=== PATIENT | male | born 1980 | race Caucasian/White ===

== ENCOUNTER 2018-06-24 13:26 | Observation (INO) ==
--- NOTE | 2018-06-24 14:15 | XR ---
EXAM DATE: 06/24/2018 2:10 PM EDT AGE/SEX: 37 years / Male INDICATIONS: Chest pain CLINICAL DATA: This is the patient's initial encounter. Patient reports that signs and symptoms have been present for 1 day and indicates a pain score of 6/10. MEDICAL/SURGICAL HISTORY: None. None. COMPARISON: No prior exams available for comparison. FINDINGS: A single AP view of the chest demonstrates the lungs to be symmetrically aerated without evidence of mass, infiltrate or effusion. The cardiomediastinal contours are unremarkable. Osseous structures a re intact. CONCLUSION: Negative examination. Electronically signed by: Dilshad Quintana MD 06/24/2018 2:14 PM EDT
[2018-06-24 14:26] LABS: Baso # (Auto) 0.1 th/mm3 (0.0-0.2); Baso % (Auto) 0.7 % (0.0-2.0); Eos # (Auto) 0.4 th/mm3 (0.0-0.4); Eos % (Auto) 3.6 % (0.0-4.0); Hematocrit 46.7 % (39.0-51.0); Hemoglobin 16.1 gm/dL (13.0-17.0); Lymph # (Auto) 2.2 th/mm3 (1.0-4.8); Lymph % (Auto) 18.8 % (9.0-44.0); Mean Corpuscular HGB Conc 34.5 % (32.0-36.0); Mean Corpuscular Hemoglobin 30.9 pg (27.0-34.0); Mean Corpuscular Volume 89.5 fL (80.0-100.0); Mean Platelet Volume 9.7 fL (7.0-11.0); Mono # (Auto) 1.1 th/mm3 (0.0-0.9); Mono % (Auto) 9.6 % (0.0-8.0); Neut % (Auto) 67.3 % (16.0-70.0); Platelet Count 260 th/mm3 (150-450); Red Blood Count 5.22 mil/mm3 (4.50-5.90); Red Cell Distribution Width 13.5 % (11.6-17.2); White Blood Count 11.8 th/mm3 (4.0-11.0)
[2018-06-24 14:33] LABS: Chloride 106 meq/L (98-107); Potassium 3.8 meq/L (3.5-5.1); Sodium 141 meq/L (136-145)
[2018-06-24 14:36] LABS: Calcium 8.6 mg/dL (8.5-10.1)
[2018-06-24 14:37] LABS: Activated Partial Thrombo Time 29.2 sec (24.3-30.1); Albumin 4.2 g/dL (3.4-5.0); Anion Gap 6 meq/L (5-15); Blood Urea Nitrogen 10 mg/dL (7-18); Glucose,Random 105 mg/dL (74-106); Prothrombin Time 10.1 sec (9.8-11.6)
[2018-06-24 14:39] LABS: Glomerular Filtration Rate Greater Than 89 mL/min (>89)
[2018-06-24 14:40] LABS: Aspartate Aminotransferase 28 U/L (15-37)
[2018-06-24 14:41] LABS: Total Protein 8.2 g/dL (6.4-8.2)
[2018-06-24 14:42] LABS: Alkaline Phosphatase 61 U/L (45-117)
[2018-06-24 14:45] LABS: Alanine Aminotransferase 39 U/L (12-78)
--- NOTE | 2018-06-24 15:17 | ED ---
HPI General Chief complaint: Chest Pain Stated complaint: Chest pain Time Seen by Provider: 06/24/18 13:49 History of Present Illness HPI narrative: Patient 37-year-old male history of prediabetes high blood pressure high cholesterol cigarette smoking obesity and cocaine abuse presents emergency department for evaluation of chest pain achy in the middle of his chest radiating to his right jaw which started an hour or 2 prior to arrival while having intercourse. Patient denies any shortness of breath abdominal pain nausea or vomiting. States is never happened him before. No history of heart disease in him, no family history of early heart disease. Patient is beginning to feel better now. Onset (ago): hour(s) Location: chest Radiation: neck Severity: moderate Quality: aching Related Data Home Medications Medication Instructions Recorded Confirmed No Known Home Medications 05/27/18 06/24/18 Allergies Allergy/AdvReac Type Severity Reaction Status Date / Time No Known Allergies Allergy Unverified 05/27/18 14:16 Review of Systems Except as stated in HPI: all other systems reviewed are negative [facility] Social History Social History Substance History: Active Abuse Second Hand Smoke Exposure: No Smoking Status: Current every day smoker Tobacco Type: Cigarettes How Often Do You Have a Drink Containing Alcohol: Never Recent Travel in [facility] within the Last 8 Weeks: No Recent Out of Country Travel within the Last 8 Weeks: No Substance Abuse Detail Crack/Cocaine: Substance Use Status: Active Reason for Use: Calm Down Immunization History Tetanus Immunization: <5 Years Hx Influenza Vaccine This Season: No Exam Narrative Exam Narrative: GENERAL: Well-developed morbidly obese male in no obvious distress SKIN: Focused skin assessment warm/dry. HEAD: Atraumatic. Normocephalic. EYES: Pupils equal and round. No scleral icterus. No injection or drainage. ENT: No nasal bleeding or discharge. Mucous membranes pink and moist. NECK: Trachea midline. No JVD. CARDIOVASCULAR: Regular rate and rhythm. No murmur appreciated. 2+ bilateral equal pulses in all 4 extremities. No murmurs gallops or rubs RESPIRATORY: No accessory muscle use. Clear to auscultation. Breath sounds equal bilaterally. GASTROINTESTINAL: Abdomen soft, non-tender, nondistended. Hepatic and splenic margins not palpable. MUSCULOSKELETAL: No obvious deformities. No clubbing. No cyanosis. No edema. NEUROLOGICAL: Awake and alert. No obvious cranial nerve deficits. Motor grossly within normal limits. Normal speech. PSYCHIATRIC: Appropriate mood and affect; insight and judgment normal. Course Initial Documented Vital Signs Temperature 98.6 F 06/24/18 13:30 Pulse Rate 88 06/24/18 13:30 Respiratory Rate 20 06/24/18 13:30 Blood Pressure 113/67 06/24/18 13:30 Pulse Oximetry 95 06/24/18 13:30 Last Documented Vital Signs Temperature 96.7 F L 06/25/18 08:00 Pulse Rate 82 06/25/18 08:00 Respiratory Rate 18 06/25/18 08:00 Blood Pressure 153/94 H 06/25/18 08:00 Pulse Oximetry 97 06/25/18 08:00 Medical Decision Making MDM Narrative Medical decision making narrative: Patient room to the emergency department, urged to stop using cocaine and smoking. He does have risk factors for ACS and a fairly good description. Initial troponin EKG negative, chest x-ray negative. Recommended admission for observation and chest pain center and he is agreeable peer Differential Diagnosis Differential Diagnosis: Chest pain, ACS, NV, cocaine use, tobacco use. Lab Data Result diagrams: 06/24/18 14:00 06/24/18 14:00 Lab Results 06/24/18 06/24/18 06/24/18 Range/Units 14:00 14:00 14:00 CBC w Diff Auto diff final WBC 11.8 H (4.0-11.0) th/mm3 RBC 5.22 (4.50-5.90) mil/mm3 Hgb 16.1 (13.0-17.0) gm/dL Hct 46.7 (39.0-51.0) % MCV 89.5 (80.0-100.0) fL MCH 30.9 (27.0-34.0) pg MCHC 34.5 (32.0-36.0) % RDW 13.5 (11.6-17.2) % Plt Count 260 (150-450) th/mm3 MPV 9.7 (7.0-11.0) fL Neut % (Auto) 67.3 (16.0-70.0) % Lymph % (Auto) 18.8 (9.0-44.0) % Eddy % (Auto) 9.6 H (0.0-8.0) % Eos % (Auto) 3.6 (0.0-4.0) % Baso % (Auto) 0.7 (0.0-2.0) % Neut # (Auto) 8.0 H (1.8-7.7) th/mm3 Lymph # (Auto) 2.2 (1.0-4.8) th/mm3 Eddy # (Auto) 1.1 H (0.0-0.9) th/mm3 Eos # (Auto) 0.4 (0.0-0.4) th/mm3 Baso # (Auto) 0.1 (0.0-0.2) th/mm3 WBC Differential . Differential Comment . PT 10.1 (9.8-11.6) sec INR 1.0 Ratio APTT 29.2 (24.3-30.1) sec Sodium 141 (136-145) meq/L Potassium 3.8 (3.5-5.1) meq/L Chloride 106 (98-107) meq/L Carbon Dioxide 29.0 (21.0-32.0) meq/L Anion Gap 6 (5-15) meq/L BUN 10 (7-18) mg/dL Creatinine 0.94 (0.60-1.30) mg/dL Estimated GFR Greater than 89 (>89) mL/min Random Glucose 105 (74-106) mg/dL Calcium 8.6 (8.5-10.1) mg/dL Total Bilirubin 0.5 (0.2-1.0) mg/dL AST 28 (15-37) U/L ALT 39 (12-78) U/L Alkaline Phosphatase 61 (45-117) U/L Total Creatine Kinase (39-308) U/L CK-MB (CK-2) (0.5-3.6) ng/mL CK-MB (CK-2) % (0.0-4.0) % Troponin I Less than 0.02 L (0.02-0.05) ng/mL Total Protein 8.2 (6.4-8.2) g/dL Albumin 4.2 (3.4-5.0) g/dL Triglycerides (42-150) mg/dL Cholesterol (120-200) mg/dL LDL Cholesterol, Calc (0-99) mg/dL HDL Cholesterol (40.0-60.0) mg/dL Cholesterol/HDL Ratio Ratio 0806/24/18 06/24/18 Range/Units 16:30 16:30 19:20 CBC w Diff WBC (4.0-11.0) th/mm3 RBC (4.50-5.90) mil/mm3 Hgb (13.0-17.0) gm/dL Hct (39.0-51.0) % MCV (80.0-100.0) fL MCH (27.0-34.0) pg MCHC (32.0-36.0) % RDW (11.6-17.2) % Plt Count (150-450) th/mm3 MPV (7.0-11.0) fL Neut % (Auto) (16.0-70.0) % Lymph % (Auto) (9.0-44.0) % Eddy % (Auto) (0.0-8.0) % Eos % (Auto) (0.0-4.0) % Baso % (Auto) (0.0-2.0) % Neut # (Auto) (1.8-7.7) th/mm3 Lymph # (Auto) (1.0-4.8) th/mm3 Eddy # (Auto) (0.0-0.9) th/mm3 Eos # (Auto) (0.0-0.4) th/mm3 Baso # (Auto) (0.0-0.2) th/mm3 WBC Differential Differential Comment PT (9.8-11.6) sec INR Ratio APTT (24.3-30.1) sec Sodium (136-145) meq/L Potassium (3.5-5.1) meq/L Chloride (98-107) meq/L Carbon Dioxide (21.0-32.0) meq/L Anion Gap (5-15) meq/L BUN (7-18) mg/dL Creatinine (0.60-1.30) mg/dL Estimated GFR (>89) mL/min Random Glucose (74-106) mg/dL Calcium (8.5-10.1) mg/dL Total Bilirubin (0.2-1.0) mg/dL AST (15-37) U/L ALT (12-78) U/L Alkaline Phosphatase (45-117) U/L Total Creatine Kinase 245 417 H (39-308) U/L CK-MB (CK-2) 1.4 (0.5-3.6) ng/mL CK-MB (CK-2) % 0.3 (0.0-4.0) % Troponin I Less than 0.02 L Less than 0.02 L (0.02-0.05) ng/mL Total Protein (6.4-8.2) g/dL Albumin (3.4-5.0) g/dL Triglycerides 185 H (42-150) mg/dL Cholesterol 155 (120-200) mg/dL LDL Cholesterol, Calc 88 (0-99) mg/dL HDL Cholesterol 30.4 L (40.0-60.0) mg/dL Cholesterol/HDL Ratio 5.09 Ratio Imaging Data Radiologist's impression: Chest X-Ray 06/24/18 13:53 CONCLUSION: Negative examination. Discharge Plan Discharge Disposition Patient Disposition: 01 Discharge Home Discharge Condition Condition: Stable Discharge Order Discharge Orders: Discharge Order (Routine); Ordered 06/25/18 Ordered By: Seth Pires Discharge Details Anticipated Discharge Date: 06/25/18 Physicians Team ED Provider: Manohar Ng Primary Care Provider: Cisco East Attending Provider: Jana Ramirez Status ED Status: Left Department Discharge Information Discharge Date/Time: 06/24/18 17:32
--- NOTE | 2018-06-24 16:31 | P.HPIM ---
History of Present Illness Service: [facility] Primary Care Physician: Cisco East MD Chief Complaint: Chest pain History of Present Illness: 37-year-old male with a self-reported history of hyperlipidemia, tobacco abuse, active cocaine use who presented to the emergency room with complaint of chest tightness located in the middle of his chest. He reports radiation to his jaw. Patient states the pain started about 2 hours prior to arriving to the emergency room while he was having sex. He admits to using cocaine. Currently he reports the pain is almost gone but he is still having some chest discomfort. He reports associated shortness of breath briefly but that resolved. He denies nausea or vomiting. No diaphoresis. - Diagnosis (1) Chest pain (2) Cocaine abuse (3) Tobacco abuse Review of Systems All other systems reviewed negative except as stated in HPI Cardiovascular: Reports chest pain PMFSH - History History Provided By: Patient - Medical History Medical History: Medical History (Last Reviewed 06/24/18 @ 16:40 by Jana Ramirez MD) GERD (gastroesophageal reflux disease) High cholesterol Hypertension Lymph node disorder - Surgical History Surgical History: Surgical History (Last Reviewed 06/24/18 @ 16:40 by Jana Ramirez MD) H/O adenoidectomy - Tobacco History Second Hand Smoke Exposure: Yes Tobacco Use In Past 30 Days: Yes Smoking Status: Current every day smoker Tobacco Type: Cigarettes - Alcohol History How Often Do You Have a Drink Containing Alcohol: 2 to 4 times a month - Substance Use History Substance History: Active Abuse - Substance Use Type Crack/Cocaine Status: Active Reason for Use: Calm Down - Travel History Recent Travel in the [facility] Within the Last 8 Weeks: No Recent Travel Out of the Country Within the Last 8 Weeks: No - Immunization History Tetanus Immunization: <5 Years Hx Influenza Vaccine This Season: No Medications and Allergies Active Medications: Active Medications Famotidine (Pepcid) 20 mg PO BID ALFONZO Nitroglycerin (Nitrostat Sl) 0.4 mg SL Q5M PRN PRN Reason: CHEST PAIN Sodium Chloride (Ns Flush) 2 ml IV.FLUSH BID ALFONZO Sodium Chloride (Ns Flush) 2 ml IV.FLUSH PRN PRN PRN Reason: FLUSH AFTER USING IV ACCESS Allergies Allergy/AdvReac Type Severity Reaction Status Date / Time No Known Allergies Allergy Unverified 05/27/18 14:16 Home Medications Medication Instructions Recorded Confirmed Type No Known Home Medications 05/27/18 06/24/18 History Exam Vital signs: Vital Signs 06/24/18 13:30 06/24/18 14:15 06/24/18 14:32 Temperature 98.6 F Pulse Rate 88 78 Respiratory Rate 20 Blood Pressure 113/67 117/69 Pulse Oximetry 95 97 95 Intake & Output 06/23/18 06/24/18 06/24/18 18:59 06:59 18:59 Weight 103.4 kg Narrative: GENERAL: Obese male in no acute distress. CARDIOVASCULAR: Normal rate and regular rhythm without murmurs, gallops, or rubs. RESPIRATORY: Good respiratory efforts. Breath sounds equal and clear to auscultation bilaterally. GASTROINTESTINAL: Abdomen soft, non-tender, non-distended. Normal active bowel sounds MUSCULOSKELETAL: Extremities without cyanosis, or edema. NEURO: Alert & Oriented x4 to person, place, time, situation. Moves all ext x4 PSYCH: Appropriate mood and affect. Results - Labs CBC & Chem 7: 06/24/18 14:00 06/24/18 14:00 Labs: Short CBC 06/24/18 Range/Units 14:00 WBC 11.8 H (4.0-11.0) th/mm3 Hgb 16.1 (13.0-17.0) gm/dL Hct 46.7 (39.0-51.0) % Plt Count 260 (150-450) th/mm3 BMP 06/24/18 14:00 Sodium 141 Potassium 3.8 Chloride 106 Carbon Dioxide 29.0 BUN 10 Creatinine 0.94 Calcium 8.6 Cardiac Enzymes 06/24/18 Range/Units 14:00 Troponin I Less than 0.02 L (0.02-0.05) ng/mL Liver Function 06/24/18 Range/Units 14:00 Total Bilirubin 0.5 (0.2-1.0) mg/dL AST 28 (15-37) U/L ALT 39 (12-78) U/L Alkaline Phosphatase 61 (45-117) U/L Albumin 4.2 (3.4-5.0) g/dL - Imaging Impressions Chest X-Ray 06/24/18 13:53 CONCLUSION: Negative examination. Caprini VTE Risk Assessment Caprini VTE Risk Assessment: No/Low Risk (score <= 1) Caprini Risk Assessment Model: Point Value = 1 Point Value = 2 Point Value = 3 Point Value = 5 Age 41-60 Minor surgery BMI > 25 kg/m2 Swollen legs Varicose veins or History of unexplained or recurrent spontaneous Oral contraceptives or hormone replacement Sepsis (< 1 month) Serious lung disease, including pneumonia (< 1 month) Abnormal pulmonary function Acute myocardial infarction Congestive heart failure (< 1 month) History of inflammatory bowel disease Medical patient at bed rest Age 61-74 Arthroscopic surgery Major open surgery (> 45 min) Laparoscopic surgery (> 45 min) Malignancy Confined to bed (> 72 hours) Immobilizing plaster cast Central venous access Age >= 75 History of VTE Family history of VTE Factor V Leiden Prothrombin [id number] Lupus anticoagulant Anticardiolipin antibodies Elevated serum homocysteine Heparin-induced thrombocytopenia Other congenital or acquired thrombophilia Stroke (< 1 month) Elective arthroplasty Hip, pelvis, or leg fracture Acute spinal cord injury (< 1 month) Prophylaxis Regimen: Total Risk Factor Score Risk Level Prophylaxis Regimen 0-1 Low Early ambulation 2 Moderate Order ONE of the following: *Sequential Compression Device (SCD) *Heparin 5000 units SQ BID 3-4 Higher Order ONE of the following medications: *Heparin 5000 units SQ TID *Enoxaparin/Lovenox 40 mg SQ daily (WT < 150 kg, CrCl > 30 mL/min) *Enoxaparin/Lovenox 30 mg SQ daily (WT < 150 kg, CrCl > 10-29 mL/min) *Enoxaparin/Lovenox 30 mg SQ BID (WT < 150 kg, CrCl > 30 mL/min) AND/OR *Sequential Compression Device (SCD) 5 or more Highest Order ONE of the following medications: *Heparin 5000 units SQ TID (Preferred with Epidurals) *Enoxaparin/Lovenox 40 mg SQ daily (WT < 150 kg, CrCl > 30 mL/min) *Enoxaparin/Lovenox 30 mg SQ daily (WT < 150 kg, CrCl > 10-29 mL/min) *Enoxaparin/Lovenox 30 mg SQ BID (WT < 150 kg, CrCl > 30 mL/min) AND *Sequential Compression Device (SCD) Assessment and Plan - Assessment (1) Chest pain Code(s): R07.9 - Chest pain, unspecified Status: Acute Plan: Risk factors include reported history of hyperlipidemia, tobacco abuse, obesity. Suspect chest pain is likely secondary to vasospasm from cocaine abuse. Continue to trend cardiac enzymes. Consider treadmill stress test tomorrow morning. Nitro as needed for chest pain. (2) Cocaine abuse Code(s): F14.10 - Cocaine abuse, uncomplicated Status: Acute Plan: Patient was extensively counseled on cessation. (3) Tobacco abuse Code(s): Z72.0 - Tobacco use Status: Acute Plan: Patient extensively counseled on cessation. - Plan Discussed Condition With: Dr. Ng
[2018-06-24 17:01] LABS: Creatine Kinase 245 U/L (39-308)
[2018-06-24] MEDS: Famotidine 20 MG Tablet PO SCH (17:01)
[2018-06-24 19:51] LABS: Creatine Kinase 417 U/L (39-308)
[2018-06-24 20:04] LABS: CKMB Percent 0.3 % (0.0-4.0); Creatine Kinase MB 1.4 ng/mL (0.5-3.6)
[2018-06-24 20:19] LABS: Chol/HDL Ratio 5.09 Ratio; HDL Cholesterol 30.4 mg/dL (40.0-60.0)
[2018-06-25] MEDS: Famotidine 20 MG Tablet PO SCH ×2 (04:32→08:30)
--- NOTE | 2018-06-25 07:46 | P.PN ---
Subjective Interval history: 37-year-old male who is seen and examined today for follow-up on chest pain. Patient denies any recurrent chest pain or any other complaint. Discussed with the patient his results are unremarkable at this time. Anticipate moving forward with stress test. Patient is in agreement. Vital signs are stable. Patient afebrile. Physical Exam Vital signs: Vital Signs 06/24/18 13:30 06/24/18 14:15 06/24/18 14:32 Temperature 98.6 F Pulse Rate 88 78 Respiratory Rate 20 Blood Pressure 113/67 117/69 Pulse Oximetry 95 97 95 06/24/18 16:30 06/24/18 18:28 06/24/18 19:40 Temperature Pulse Rate 68 92 H Respiratory Rate 18 Blood Pressure 120/77 Pulse Oximetry 95 06/24/18 20:00 06/25/18 00:00 Temperature 96.9 F L 98.5 F Pulse Rate 86 86 Respiratory Rate 16 16 Blood Pressure 124/75 130/79 Pulse Oximetry 99 96 Intake & Output 06/24/18 06/25/18 06/25/18 18:59 06:59 18:59 Intake Total 240 / 240 Balance 240 / 240 Weight 103.4 kg 104.9 kg Intake: Oral 240 / 240 Other: # Voids 0 2 # Bowel Movements 0 Narrative: GENERAL: Well-developed, mildly obese, in no acute distress. alert and orientated HEENT: Head is normocephalic without any lesions or masses noted. Facial features are symmetric. Eyes: Extraocular muscles are intact. Conjunctivae were clear. NECK: Supple without any masses. Trachea midline no deviation. No JVD, CARDIAC: Regular rhythm, regular rate. S1/S2 are heard. No murmurs gallops or rubs. LUNGS: Clear to auscultation bilaterally. No wheeze, rhonchi or rales. No use of accessory muscles on inspiration or expiration. ABDOMEN: Soft, nontender. Nondistended. Bowel sounds heard in all 4 quadrants. No organomegaly or masses. Negative rebound, negative guarding EXTREMITIES: No edema, pulses are equal bilaterally. No cyanosis or clubbing NEUROLOGY: Mood and affect appear appropriate. Cranial nerves II through XII grossly intact. Moving all extremities, speech is clear Results - Labs CBC & Chem 7: 06/24/18 14:00 06/24/18 14:00 Laboratory Results - last 24 hr 06/24/18 06/24/18 06/24/18 14:00 14:00 14:00 CBC w Diff Auto diff final WBC 11.8 H RBC 5.22 Hgb 16.1 Hct 46.7 MCV 89.5 MCH 30.9 MCHC 34.5 RDW 13.5 Plt Count 260 MPV 9.7 Neut % (Auto) 67.3 Lymph % (Auto) 18.8 Beaver % (Auto) 9.6 H Eos % (Auto) 3.6 Baso % (Auto) 0.7 Neut # (Auto) 8.0 H Lymph # (Auto) 2.2 Beaver # (Auto) 1.1 H Eos # (Auto) 0.4 Baso # (Auto) 0.1 WBC Differential . Differential Comment . PT 10.1 INR 1.0 APTT 29.2 Sodium 141 Potassium 3.8 Chloride 106 Carbon Dioxide 29.0 Anion Gap 6 BUN 10 Creatinine 0.94 Estimated GFR Greater than 89 Random Glucose 105 Calcium 8.6 Total Bilirubin 0.5 AST 28 ALT 39 Alkaline Phosphatase 61 Total Creatine Kinase CK-MB (CK-2) CK-MB (CK-2) % Troponin I Less than 0.02 L Total Protein 8.2 Albumin 4.2 Triglycerides Cholesterol LDL Cholesterol, Calc HDL Cholesterol Cholesterol/HDL Ratio 06/24/18 06/24/18 06/24/18 16:30 16:30 19:20 CBC w Diff WBC RBC Hgb Hct MCV MCH MCHC RDW Plt Count MPV Neut % (Auto) Lymph % (Auto) Beaver % (Auto) Eos % (Auto) Baso % (Auto) Neut # (Auto) Lymph # (Auto) Beaver # (Auto) Eos # (Auto) Baso # (Auto) WBC Differential Differential Comment PT INR APTT Sodium Potassium Chloride Carbon Dioxide Anion Gap BUN Creatinine Estimated GFR Random Glucose Calcium Total Bilirubin AST ALT Alkaline Phosphatase Total Creatine Kinase 245 417 H CK-MB (CK-2) 1.4 CK-MB (CK-2) % 0.3 Troponin I Less than 0.02 L Less than 0.02 L Total Protein Albumin Triglycerides 185 H Cholesterol 155 LDL Cholesterol, Calc 88 HDL Cholesterol 30.4 L Cholesterol/HDL Ratio 5.09 - Imaging Impressions Chest X-Ray 06/24/18 13:53 CONCLUSION: Negative examination. Assessment and Plan - Assessment (1) Chest pain Code(s): R07.9 - Chest pain, unspecified Status: Acute Plan: -Patient with increased risk factors to include reported history of hyperlipidemia, tobacco abuse, obesity. -Suspect chest pain is likely secondary to vasospasm from cocaine abuse. -Patient has been ruled out for acute coronary event with serial cardiac enzymes that have remained negative -Serial EKGs were reviewed by myself and shows sinus rhythm without any changes -Exercise stress test was performed and indicated no signs of ischemia, normal exam -Continue aspirin and nitroglycerin as needed (2) Cocaine abuse Code(s): F14.10 - Cocaine abuse, uncomplicated Status: Acute Plan: -Patient was counseled extensively on cessation of cocaine use (3) Tobacco abuse Code(s): Z72.0 - Tobacco use Status: Acute Plan: -Patient extensively counseled on cessation. - Plan Discharge Planning: Discharge home in stable condition Activity: Ad kathie. Diet: Healthy heart diet Medication per medication reconciliation Follow-up with primary medical doctor in 1 week
--- NOTE | 2018-06-25 11:12 | TR ---
Date Performed: 06/25/2018 Time Performed: 09:48:44 DOCTOR: Kevin Rascon DRUG LIST: CLINICAL HISTORY: CHEST PAIN REASON FOR TEST: REASON FOR ENDING: Completed Protocol OBSERVATION: Arrhythmia: None Chest Pain: None CONCLUSION: Patient tolerated JAMES protocol with Total Exercise Time=10:00 Maximum BD=795 % Max HR Achieved=92.0% Maximum NI=907/88, Testing stopped secondary to goals acheived. Patient reached ta rget HR, During peak exercise, patient was asymptomatic, Quick upsloping ST segments, HR and BP appro priate response to exercise, Recovery period HR and BP returned to baseline COMMENTS: Conclusion: Normal treadmill exercise. No evidence of ischemia.
--- NOTE | 2018-06-25 14:02 | ECG ---
Date Performed: 06/24/2018 Time Performed: 19:20:09 PTAGE: 37 years EKG: Sinus rhythm WITH SINUS ARRHYTHMIA NORMAL ECG Since the PREVIOUS TRACING , no significant change noted PREVIOUS TRACIN06/24/2018 13.26 DOCTOR: Andree Tavera Interpretating Date/Time 06/25/2018 14:00:57
--- NOTE | 2018-06-25 14:24 | ECG ---
Date Performed: 06/24/2018 Time Performed: 13:26:11 PTAGE: 37 years EKG: Sinus rhythm WITH SINUS ARRHYTHMIA NORMAL ECG Artifact NO PREVIOUS TRACING DOCTOR: Andree Tavera Interpretating Date/Time 06/25/2018 14:23:44
[2018-06-28 18:09] VITALS: BP 153/94; PULSE 82; RESP 18; TEMP 96.7; O2SAT 97
== END 2018-06-25 13:10 | disposition home or self-care (01) ==
LOC: PHEDA 13:26 → PH3 13:26 → PHED 13:26 → PHEDA 17:32 → PH3 17:39
PROVIDERS: ADMIT Family Medicine; ATTEND Family Medicine